=== PATIENT | female | born 1945 | race Native Hawaiian/Other Pacific Islander ===

== ENCOUNTER 2016-05-26 10:29 | Outpatient (CLI) | payer OTHER ==
[~2016-05-26] VITALS: Ht 154.9 cm; Wt 54.0 kg
[~2016-05-26 10:29] MED LIST: ALBU90AE13 INH; ALBUSOL IN; ALPR0.2566 PO; AMOX875T8 PO; ASPIR-8181 MG PO; CALCIUM600 M2 OR; CEFD300C2 PO; CYCLOBENZAPR7.5 MG PO; FLUC100T3 PO; FLUTMIS2 INH; LORA10TA3 PO; MEDROL DOSEPAK4 MG OR; MEDROL DOSEPAK4 MG PO; METRONIDAZOL0.75 % VA; METRONIDAZOL500 MG PO; OMEP40CA PO; OXYB5TAB56 PO; PRAVACHOL20 MG PO; PRILOSEC40 MG OR; RESTORIL7.5 MG PO; SIMV40TA57 PO; VENLAFAXINE37.5 ER PO; ZOLP10TA2 PO
[2016-05-26 10:35] VITALS: BP 124/56; TEMP 98.2
[2016-05-26 10:55] VITALS: BP 124/60
== END 2016-05-26 21:28 | disposition home or self-care (01) ==
LOC: INF 10:29
DX: M81.0 Age-related osteoporosis without current pathological fracture (principal)
CPT/HCPCS: 96372; J0897

== ENCOUNTER 2016-07-19 07:29 | Day surgery (SDC) | payer OTHER ==
[~2016-07-19] VITALS: Ht 165.1 cm; Wt 59.0 kg
== END 2016-07-19 11:20 | disposition home or self-care (01) ==
LOC: OR 07:29
PROC: 0DJD8ZZ Inspection of Lower Intestinal Tract, Via Natural or Artificial Opening Endoscopic (ICD-10-PCS; principal; 2016-07-19)
DX: Z12.11 Encounter for screening for malignant neoplasm of colon (principal)
CPT/HCPCS: J2704

== ENCOUNTER 2016-12-14 08:33 | Outpatient (CLI) | payer OTHER ==
[~2016-12-14] VITALS: Ht 154.9 cm; Wt 52.2 kg
[2016-12-14 09:20] VITALS: BP 122/55; TEMP 97.8
== END 2016-12-14 09:20 | disposition home or self-care (01) ==
LOC: INF 08:33 → MAMMO 08:33 → INF 09:20
DX: M81.0 Age-related osteoporosis without current pathological fracture (principal); Z12.31 Encounter for screening mammogram for malignant neoplasm of breast
CPT/HCPCS: 36415; 82310; 96372; G0202-TC; J0897

== ENCOUNTER 2017-06-20 09:35 | Outpatient (CLI) | payer OTHER ==
[~2017-06-20] VITALS: Ht 154.9 cm; Wt 52.6 kg
== END 2017-06-20 20:05 | disposition home or self-care (01) ==
LOC: INF 09:35
DX: M81.0 Age-related osteoporosis without current pathological fracture (principal)
CPT/HCPCS: 36415; 82310; 96372; J0897

== ENCOUNTER 2017-12-21 10:09 | Outpatient (CLI) | payer OTHER ==
[~2017-12-21] VITALS: Ht 154.9 cm; Wt 54.4 kg
== END 2017-12-21 23:15 | disposition home or self-care (01) ==
LOC: MAMMO 10:09 → INF 10:09 → MAMMO 10:30 → INF 23:15
DX: M81.0 Age-related osteoporosis without current pathological fracture (principal); Z12.31 Encounter for screening mammogram for malignant neoplasm of breast
CPT/HCPCS: 36415; 82310; 96372; J0897

== ENCOUNTER 2018-06-25 12:26 | Outpatient (CLI) | payer OTHER ==
[~2018-06-25] VITALS: Ht 154.9 cm; Wt 54.4 kg
[2018-06-25 12:55] VITALS: BP 128/60; TEMP 98
== END 2018-06-25 13:30 | disposition home or self-care (01) ==
LOC: INF 12:26
DX: M81.0 Age-related osteoporosis without current pathological fracture (principal)
CPT/HCPCS: 36415; 82310; 96372; J0897

== ENCOUNTER 2019-01-11 10:36 | Outpatient (CLI) | payer OTHER | END 2019-01-11 21:48 | disposition home or self-care (01) | LOC: MRI 10:36 | DX: M25.511 Pain in right shoulder (principal); S42.254D Nondisplaced fracture of greater tuberosity of right humerus, subsequent encounter for fracture with routine healing; M75.01 Adhesive capsulitis of right shoulder; M75.121 Complete rotator cuff tear or rupture of right shoulder, not specified as traumatic ==

== ENCOUNTER 2019-01-17 10:31 | Outpatient (CLI) | payer OTHER ==
[~2019-01-17] VITALS: Ht 154.9 cm; Wt 56.7 kg
[2019-01-17 11:55] VITALS: BP 149/74; TEMP 98.1
== END 2019-01-17 12:40 | disposition home or self-care (01) ==
LOC: INF 10:31 → MAMMO 10:31 → INF 12:40
DX: Z12.31 Encounter for screening mammogram for malignant neoplasm of breast (principal); M81.0 Age-related osteoporosis without current pathological fracture
CPT/HCPCS: 36415; 82310; 96372; J0897

== ENCOUNTER 2019-07-22 09:47 | Outpatient (CLI) | payer OTHER ==
[~2019-07-22] VITALS: Ht 170.2 cm; Wt 56.7 kg
== END 2019-07-22 10:35 | disposition home or self-care (01) ==
LOC: INF 09:47
DX: M81.0 Age-related osteoporosis without current pathological fracture (principal)
CPT/HCPCS: 36415; 82310; 96372; J0897

== ENCOUNTER 2020-02-13 09:07 | Outpatient (CLI) | payer OTHER ==
[~2020-02-13] VITALS: Ht 154.9 cm; Wt 54.4 kg
[2020-02-13 10:25] VITALS: BP 139/57; TEMP 98.1
== END 2020-02-13 11:25 | disposition home or self-care (01) ==
LOC: INF 09:07
DX: M81.0 Age-related osteoporosis without current pathological fracture (principal)
CPT/HCPCS: 36415; 82310; 96372; J0897

== ENCOUNTER 2020-03-30 10:20 | Outpatient (CLI) | payer OTHER | END 2020-03-30 23:14 | disposition home or self-care (01) | LOC: US 10:20 | PROVIDERS: ATTEND Internal Medicine | DX: I73.9 Peripheral vascular disease, unspecified (principal); F41.8 Other specified anxiety disorders; K21.9 Gastro-esophageal reflux disease without esophagitis; R29.898 Other symptoms and signs involving the musculoskeletal system ==

== ENCOUNTER 2020-09-18 10:04 | Outpatient (CLI) | payer OTHER ==
[~2020-09-18] VITALS: Ht 154.9 cm; Wt 59.4 kg
[2020-09-18 11:20] VITALS: BP 128/79; TEMP 97.9
== END 2020-09-18 21:49 | disposition home or self-care (01) ==
LOC: INF 10:04
PROVIDERS: ATTEND Internal Medicine
DX: M81.0 Age-related osteoporosis without current pathological fracture (principal)
CPT/HCPCS: 36415; 82310; 96372; J0897

== ENCOUNTER 2021-04-01 09:47 | Outpatient (CLI) | payer OTHER ==
[~2021-04-01] VITALS: Ht 154.9 cm; Wt 57.2 kg
[2021-04-01 11:38] VITALS: BP 147/57; TEMP 98.6
== END 2021-04-01 19:18 | disposition home or self-care (01) ==
LOC: INF 09:47
PROVIDERS: ATTEND Internal Medicine Endocrinology, Diabetes & Metabolism
DX: M81.0 Age-related osteoporosis without current pathological fracture (principal)
CPT/HCPCS: 36415; 82310; 96372; J0897

== ENCOUNTER 2021-05-12 11:02 | Outpatient (CLI) | payer OTHER | END 2021-05-12 21:25 | disposition home or self-care (01) | LOC: RAD 11:02 | PROVIDERS: ATTEND Internal Medicine | DX: M79.671 Pain in right foot (principal) ==

== ENCOUNTER 2021-08-18 16:49 | Outpatient (CLI) | payer OTHER | END 2021-08-18 19:14 | disposition home or self-care (01) | LOC: RAD 16:49 | PROVIDERS: ATTEND Internal Medicine | DX: M25.512 Pain in left shoulder (principal); M25.522 Pain in left elbow; S49.82XA Other specified injuries of left shoulder and upper arm, initial encounter; Y92.9 Unspecified place or not applicable ==

== ENCOUNTER 2021-09-01 10:24 | Outpatient (CLI) | payer OTHER | END 2021-09-01 19:17 | disposition home or self-care (01) | LOC: RAD 10:24 | PROVIDERS: ATTEND Internal Medicine | DX: R07.89 Other chest pain (principal); M54.2 Cervicalgia ==

== ENCOUNTER 2022-01-14 09:28 | Outpatient (CLI) | payer OTHER ==
[~2022-01-14] VITALS: Ht 154.9 cm; Wt 54.0 kg
[2022-01-14 10:17] VITALS: BP 156/61; TEMP 98.2
[2022-01-14 11:45] VITALS: BP 148/66; BP 156/61; TEMP 98
== END 2022-01-14 21:49 | disposition home or self-care (01) ==
LOC: US 09:28 → INF 09:28 → US 09:30 → INF 21:49
PROVIDERS: ATTEND Internal Medicine
DX: R42 Dizziness and giddiness (principal); M81.0 Age-related osteoporosis without current pathological fracture
CPT/HCPCS: 36415; 82310; 96372; J0897

== ENCOUNTER 2022-03-02 09:22 | Outpatient (CLI) | payer OTHER | END 2022-03-02 21:17 | disposition home or self-care (01) | LOC: MRI 09:22 | PROVIDERS: ATTEND Internal Medicine | DX: M25.512 Pain in left shoulder (principal) ==

== ENCOUNTER 2022-06-15 16:07 | Emergency (ER) | payer OTHER ==
[~2022-06-15] VITALS: Ht 154.9 cm; Wt 54.0 kg
[2022-06-15 16:10] VITALS: TEMP 98.3
[2022-06-15 16:48] LABS: PLATELET COUNT 304 K/uL (152-353)
[2022-06-15 16:58] LABS: POTASSIUM 3.7 mmol/L (3.6-5.2)
[2022-06-15 18:41] VITALS: BP 149/62
== END 2022-06-15 18:41 | disposition home or self-care (01) ==
LOC: ED 16:07
PROVIDERS: Emergency Medicine Emergency Medical Services
DX: R55 Syncope and collapse (principal); I10 Essential (primary) hypertension
CPT/HCPCS: 80053; 81002; 83735; 84484; 85027; 93005; 96360; 99284

== ENCOUNTER 2022-12-29 11:15 | Outpatient (CLI) | payer OTHER | END 2022-12-29 20:18 | disposition home or self-care (01) | LOC: RAD 11:15 | PROVIDERS: ATTEND Nurse Practitioner | DX: R07.1 Chest pain on breathing (principal) ==